=== PATIENT | male | born 1995 | race American Indian/Alaskan Native ===

== ENCOUNTER 2017-07-25 13:37 | Emergency (ER) | payer SELFPAY ==
[2017-07-25 14:03] VITALS: BP 137/76
--- NOTE | 2017-07-25 15:51 | Emergency Department Report ---
Blank Doc - Documentation Documentation: Patient is a 22-year-old male whose presenting with 3 days of diarrhea and now nausea vomiting. Patient states he vomited roughly 6 times this morning. Patient states he has dry mouth. Patient denies any fever. Patient states that some crampy abdominal pain epigastric and left lower quadrant. Patient is not sure of the cause. Patient states he has eaten anything thatmay have caused the symptoms.
[2017-07-25] MEDS ORDERED: TORADOL IV ONE (15:52)
[2017-07-25] MEDS ORDERED: NACL 0.9% 1000 ML 1,000 ML IV ONE (15:52)
[2017-07-25] MEDS ORDERED: BENTYL IM ONE (15:52)
[2017-07-25] MEDS ORDERED: PEPCID IV ONE (15:52)
[2017-07-25 16:23] LABS: Basophils % (Auto) 0.2 % (0.0-1.8); Eosinophils % (Auto) 0.1 % (0.0-4.3); Hemoglobin 16.1 gm/dl (11.8-15.2); Lymphocytes % (Auto) 22.7 % (13.4-35.0); Mean Corpuscular HGB Conc 34 % (32-34); Mean Corpuscular Hemoglobin 32 pg (28-32); Mean Corpuscular Volume 94 fl (84-94); Monocytes # (Auto) 0.4 K/mm3 (0.0-0.8); Monocytes % (Auto) 9.4 % (0.0-7.3); Platelet Count 122 K/mm3 (140-440); Red Blood Count 5.08 M/mm3 (3.65-5.03); Red Cell Distribution Width 13.6 % (13.2-15.2)
[2017-07-25 16:43] LABS: Alanine Aminotransferase 21 units/L (7-56); Albumin 4.2 g/dL (3.9-5); BUN/Creatinine Ratio 10; Blood Urea Nitrogen 9 mg/dL (9-20); Calcium 8.8 mg/dL (8.4-10.2); Hemolysis Index 12; Lipase 24 units/L (13-60)
--- NOTE | 2017-07-25 17:27 | Emergency Department Report ---
Vomiting/Diarrhea - HPI Chief Complaint: Abdominal Pain Stated Complaint: DIARRHEA/VOMITING Time Seen by Provider: 07/25/17 15:47 Duration: 3 Days Severity: mild Nausea/Vomiting Severity: None Diarrhea Severity: None Pain Location: Epigastric Pain Severity: Mild Symptoms: Yes Watery Diarrhea, Yes Able to Tolerate Fluids, Yes Recent Unusual Foods (possibly undercooked fast food as per patient), No Bloody diarrhea, No Fever, No Recent Untreated Water, No Recent use of Antibiotics, No Family w/ Similar Symptoms, No Contacts w/ Similar Symptoms, No Rash, No Hematuria Other History: 22-year-old male with past medical history none presents with complaint of approximately 2 days of intermittent nausea with associated vomiting. Patient states he had a few episodes of slightly watery stools. Patient currently feels significantly better. Denies any associated fever or chills. States that he feels no nausea at this moment and no abdominal pain. Patient denies any dysuria. ED Review of Systems ROS: Stated complaint: DIARRHEA/VOMITING Other details as noted in HPI Constitutional: denies: chills, fever Eyes: denies: eye pain, eye discharge, vision change ENT: denies: ear pain, throat pain Respiratory: denies: cough, shortness of breath, wheezing Cardiovascular: denies: chest pain, palpitations Endocrine: no symptoms reported Gastrointestinal: abdominal pain, nausea, vomiting. denies: diarrhea Genitourinary: denies: urgency, dysuria Musculoskeletal: denies: back pain, joint swelling, arthralgia Skin: denies: rash, lesions Neurological: denies: headache, weakness, paresthesias Psychiatric: denies: anxiety, depression Hematological/Lymphatic: denies: easy bleeding, easy bruising ED Past Medical Hx - Past Medical History Previous Medical History?: Yes Hx HIV: Yes Additional medical history: herpes - Surgical History Past Surgical History?: No - Social History Smoking Status: Current Every Day Smoker Substance Use Type: Alcohol - Medications Home Medications: Home Medications Medication Instructions Recorded Confirmed Last Taken Type Bismuth Subsalicylate 10 ml PO QID PRN #1 udc 07/25/17 Unknown Rx [Pepto-Bismol] Famotidine [Pepcid] 20 mg PO BID PRN #30 tablet 07/25/17 Unknown Rx Ondansetron [Zofran Odt] 4 mg PO Q8H PRN #20 tab.rapdis 07/25/17 Unknown Rx Vomiting Diarrhea Exam - Exam General: Vital signs noted. No distress. Alert and acting appropriately. HEENT: Yes Moist Mucous Membranes, No Pharyngeal Erythema, No Pharyngeal Exudates, No Rhinorrhea, No Conjuctival Injection, No Frontal Tenderness, No Maxillary Tenderness Neck: No Adenopathy, No Rigidity Lungs: Yes Clear Lung Sounds, Yes Good Air Exchange, No Wheezes, No Stridor, No Cough, No Nasal Flaring, No Retractions, No Use of Accessory Muscles Heart exam: Regular: Yes, Murmur: No, Tachycardia: No Abdomen: Tenderness: No (abdomen soft nontender nondistended. Negative Osborne sign.), Peritoneal Signs: No, Distention: No, Hyperactive Bowel sounds: No Skin exam: Rash: No, Edema: No, Normal turgor: Yes Neurologic: Alert and oriented, no deficits. Musculoskeletal: Unremarkable. ED Course Vital Signs 07/25/17 14:00 Temperature 98.4 F Pulse Rate 77 Respiratory 16 Rate Blood Pressure 137/76 O2 Sat by Pulse 97 Oximetry ED Medical Decision Making - Lab Data Result diagrams: 07/25/17 16:00 07/25/17 16:00 - Medical Decision Making A/P: Gastroenteritis 1-patient no longer feels nauseous tolerating by mouth fluid without difficulty 2-labs unremarkable 3-follow-up with PMD 4- Zofran and Pepcid when necessary Critical care attestation.: If time is entered above; I have spent that time in minutes in the direct care of this critically ill patient, excluding procedure time. ED Disposition Clinical Impression: Gastroenteritis Disposition: DC-01 TO HOME OR SELFCARE Is pt being admited?: No Does the pt Need Aspirin: No Condition: Stable Instructions: Gastroenteritis (ED) Prescriptions: Bismuth Subsalicylate [Pepto-Bismol] 10 ml PO QID PRN #1 udc PRN Reason: Indigestion Famotidine [Pepcid] 20 mg PO BID PRN #30 tablet PRN Reason: Indigestion Ondansetron [Zofran Odt] 4 mg PO Q8H PRN #20 tab.rapdis PRN Reason: Nausea Referrals: PRIMARY CARE,MD [Primary Care Provider] - 3-5 Days [facility] [place] [Outside] - 3-5 Days [facility] [Outside] - 3-5 Days Forms: Work/School Release Form(ED) Time of Disposition: 17:25
== END 2017-07-25 17:32 | disposition home or self-care (01) ==
LOC: ED 13:37
DX: K52.9 Noninfective gastroenteritis and colitis, unspecified (principal); F17.200 Nicotine dependence, unspecified, uncomplicated
CPT/HCPCS: 36415; 80053; 83690; 85025; 96361; 96372; 96374; 96375; 99283; J0500; J1885; J7030

== ENCOUNTER 2019-05-28 14:21 | Emergency (ER) | payer SELFPAY ==
[2019-05-28 15:23] VITALS: BP 109/64
--- NOTE | 2019-05-28 15:33 | Event Note ---
ED Screening Note Date of service: 05/28/19 Time: 15:29 ED Screening Note: This is a 24 y.o. M. with abdominal pain and constipation for 2 weeks. Reports diarrhea stool yesterday w/o relief. Denies recent travel or unusual foods. This initial assessment/diagnostic orders/clinical plan/treatment(s) is/are subject to change based on patients health status, clinical progression and re- assessment by fellow clinical providers in the ED. Further treatment and workup at subsequent clinical providers discretion. Patient/guardian urged not to elope from the ED as their condition may be serious if not clinically assessed and managed. Initial orders include: Labs XR of abdomen
--- NOTE | 2019-05-28 16:19 | XRay Report ---
ABDOMEN 2 VIEW(S) INDICATION / CLINICAL INFORMATION: MAIN: diffuse abdominal pain; Pt. c/o no normal BM x 2 weeks and abdominal pain. Pt. been experienci ng watery diarrhea since last night. Pt. has hx of HIV and Herpes.. COMPARISON: None available. FINDINGS: TUBES / LINES: None. BOWEL GAS PATTERN: Nonobstructive bowel gas pattern with nonspecific air-fluid levels in the small an d large bowel seen on the upright radiograph. FREE AIR / EXTRALUMINAL GAS: None seen. ADDITIONAL FINDINGS: No significant additional findings. IMPRESSION: 1. Nonobstructive bowel gas pattern with air-fluid levels seen in the small and large bowel, can be s een in the setting of enteritis or diarrheal illness. Signer Name: Bre Cordova MD Signed: 05/28/2019 4:14 PM Workstation Name: [id number]
[2019-05-28 16:32] LABS: Basophils % (Auto) 0.2 % (0.0-1.8); Eosinophils % (Auto) 0.1 % (0.0-4.3); Hematocrit 44.4 % (35.5-45.6); Hemoglobin 14.5 gm/dl (11.8-15.2); Lymphocytes # (Auto) 1.7 K/mm3 (1.2-5.4); Lymphocytes % (Auto) 14.9 % (13.4-35.0); Mean Corpuscular HGB Conc 33 % (32-34); Mean Corpuscular Volume 93 fl (84-94); Monocytes % (Auto) 8.5 % (0.0-7.3); Platelet Count 285 K/mm3 (140-440); Red Cell Distribution Width 13.1 % (13.2-15.2)
[2019-05-28 16:41] LABS: Alanine Aminotransferase 9 units/L (7-56); BUN/Creatinine Ratio 10; Blood Urea Nitrogen 10 mg/dL (9-20); Calcium 9.3 mg/dL (8.4-10.2); Hemolysis Index 11
[2019-05-28] MEDS ORDERED: FAMOTIDINE 20 MG/2 ML INJ IV ONE (17:11)
[2019-05-28] MEDS ORDERED: SODIUM CHLORIDE 0.9% 1000 ML 1,000 ML IV ONE (17:11)
[2019-05-28] MEDS ORDERED: KETOROLAC 30 MG/1 ML INJ IV ONE (17:11)
[2019-05-28] MEDS ORDERED: ONDANSETRON 4 MG/2 ML INJ IV ONE (17:13)
--- NOTE | 2019-05-28 17:17 | Emergency Department Report ---
ED N/V/D HPI - General Chief complaint: Abdominal Pain Stated complaint: NOT GOING Time Seen by Provider: 05/28/19 15:28 Source: patient Mode of arrival: Ambulatory Limitations: No Limitations - History of Present Illness Initial comments: This is a 24-year-old male who presents the ED complaining of loose watery diarrhea that began last night. Patient states for the past 2 weeks he has had constipation and inability to have a bowel movement. Patient states that he has had no unusual travel or unusual food recently. Patient states the last meal he had was chicken noodle soup which was last night. Patient admits mild abdominal cramping but otherwise no other symptoms. Patient denies fevers/chills/chest pain/shortness of breath. MD complaint: diarrhea - Related Data Previous Rx's Medication Instructions Recorded Last Taken Type Famotidine [Pepcid] 20 mg PO BID PRN #30 tablet 07/25/17 Unknown Rx Ondansetron [Zofran Odt] 4 mg PO Q8H PRN #20 tab.rapdis 07/25/17 Unknown Rx Bismuth Subsalicylate [Pepto 10 ml PO QID PRN #1 udc 05/28/19 Unknown Rx Bismol] Ciprofloxacin HCl [Ciprofloxacin 500 mg PO Q12HR #14 tab 05/28/19 Unknown Rx TAB] Dicyclomine [Bentyl] 20 mg PO TID #20 tablet 05/28/19 Unknown Rx metroNIDAZOLE [Flagyl TAB] 500 mg PO Q12HR #14 tab 05/28/19 Unknown Rx Allergies Allergy/AdvReac Type Severity Reaction Status Date / Time No Known Allergies Allergy Verified 07/25/17 14:00 ED Review of Systems ROS: Stated complaint: NOT GOING Other details as noted in HPI Comment: All other systems reviewed and negative ED Past Medical Hx - Past Medical History Previous Medical History?: Yes Hx HIV: Yes Additional medical history: herpes - Surgical History Past Surgical History?: No - Social History Smoking Status: Current Every Day Smoker Substance Use Type: Alcohol, Marijuana - Medications Home Medications: Home Medications Medication Instructions Recorded Confirmed Last Taken Type Famotidine [Pepcid] 20 mg PO BID PRN #30 tablet 07/25/17 Unknown Rx Ondansetron [Zofran Odt] 4 mg PO Q8H PRN #20 tab.rapdis 07/25/17 Unknown Rx Bismuth Subsalicylate [Pepto 10 ml PO QID PRN #1 udc 05/28/19 Unknown Rx Bismol] Ciprofloxacin HCl [Ciprofloxacin 500 mg PO Q12HR #14 tab 05/28/19 Unknown Rx TAB] Dicyclomine [Bentyl] 20 mg PO TID #20 tablet 05/28/19 Unknown Rx metroNIDAZOLE [Flagyl TAB] 500 mg PO Q12HR #14 tab 05/28/19 Unknown Rx ED Physical Exam - General Limitations: No Limitations General appearance: alert, in no apparent distress - Head Head exam: Present: atraumatic, normocephalic - Eye Eye exam: Present: normal appearance - ENT ENT exam: Present: mucous membranes moist - Neck Neck exam: Present: normal inspection - Respiratory Respiratory exam: Present: normal lung sounds bilaterally. Absent: respiratory distress - Cardiovascular Cardiovascular Exam: Present: regular rate, normal rhythm. Absent: systolic murmur, diastolic murmur, rubs, gallop - GI/Abdominal GI/Abdominal exam: Present: soft, normal bowel sounds - Rectal Rectal exam: Present: deferred - Extremities Exam Extremities exam: Present: normal inspection - Back Exam Back exam: Present: normal inspection - Neurological Exam Neurological exam: Present: alert, oriented X3 - Psychiatric Psychiatric exam: Present: normal affect, normal mood - Skin Skin exam: Present: warm, dry, intact, normal color. Absent: rash ED Course Vital Signs 05/28/19 05/28/19 05/28/19 14:50 15:26 18:04 Temperature 98.7 F 98.4 F Pulse Rate 105 H 98 H Respiratory 16 18 Rate Blood Pressure 109/64 109/64 O2 Sat by Pulse 100 99 Oximetry ED Medical Decision Making - Lab Data Result diagrams: 05/28/19 16:08 05/28/19 16:08 Laboratory Last Values WBC 11.3 K/mm3 (4.5-11.0) H 05/28/19 16:08 RBC 4.80 M/mm3 (3.65-5.03) 05/28/19 16:08 Hgb 14.5 gm/dl (11.8-15.2) 05/28/19 16:08 Hct 44.4 % (35.5-45.6) 05/28/19 16:08 MCV 93 fl (84-94) 05/28/19 16:08 MCH 30 pg (28-32) 05/28/19 16:08 MCHC 33 % (32-34) 05/28/19 16:08 RDW 13.1 % (13.2-15.2) L 05/28/19 16:08 Plt Count 285 K/mm3 (140-440) 05/28/19 16:08 Lymph % (Auto) 14.9 % (13.4-35.0) 05/28/19 16:08 [place] % (Auto) 8.5 % (0.0-7.3) H 05/28/19 16:08 Eos % (Auto) 0.1 % (0.0-4.3) 05/28/19 16:08 Baso % (Auto) 0.2 % (0.0-1.8) 05/28/19 16:08 Lymph # 1.7 K/mm3 (1.2-5.4) 05/28/19 16:08 [place] # 1.0 K/mm3 (0.0-0.8) H 05/28/19 16:08 Eos # 0.0 K/mm3 (0.0-0.4) 05/28/19 16:08 Baso # 0.0 K/mm3 (0.0-0.1) 05/28/19 16:08 Seg Neutrophils % 76.3 % (40.0-70.0) H 05/28/19 16:08 Seg Neutrophils # 8.6 K/mm3 (1.8-7.7) H 05/28/19 16:08 Sodium 133 mmol/L (137-145) L 05/28/19 16:08 Potassium 3.8 mmol/L (3.6-5.0) 05/28/19 16:08 Chloride 92.5 mmol/L (98-107) L 05/28/19 16:08 Carbon Dioxide 21 mmol/L (22-30) L 05/28/19 16:08 Anion Gap 23 mmol/L 05/28/19 16:08 BUN 10 mg/dL (9-20) 05/28/19 16:08 Creatinine 1.0 mg/dL (0.8-1.5) 05/28/19 16:08 Estimated GFR > 60 ml/min 05/28/19 16:08 BUN/Creatinine Ratio 10 % 05/28/19 16:08 Glucose 112 mg/dL (75-100) H 05/28/19 16:08 Calcium 9.3 mg/dL (8.4-10.2) 05/28/19 16:08 Total Bilirubin 0.50 mg/dL (0.1-1.2) 05/28/19 16:08 AST 12 units/L (5-40) 05/28/19 16:08 ALT 9 units/L (7-56) 05/28/19 16:08 Alkaline Phosphatase 67 units/L (35-129) 05/28/19 16:08 Total Protein 8.2 g/dL (6.3-8.2) 05/28/19 16:08 Albumin 4.0 g/dL (3.9-5) 05/28/19 16:08 Albumin/Globulin Ratio 1.0 % 05/28/19 16:08 Urine Color Alissa (Yellow) 05/28/19 Unknown Urine Turbidity Clear (Clear) 05/28/19 Unknown Urine pH 5.0 (5.0-7.0) 05/28/19 Unknown Ur Specific [place] 1.025 (1.003-1.030) 05/28/19 Unknown Urine Protein 30 mg/dl mg/dL (Negative) 05/28/19 Unknown Urine Glucose (UA) Neg mg/dL (Negative) 05/28/19 Unknown Urine Ketones Tr mg/dL (Negative) 05/28/19 Unknown Urine Blood Sm (Negative) 05/28/19 Unknown Urine Nitrite Neg (Negative) 05/28/19 Unknown Urine Bilirubin Neg (Negative) 05/28/19 Unknown Urine Urobilinogen < 2.0 mg/dL (<2.0) 05/28/19 Unknown Ur Leukocyte Esterase Neg (Negative) 05/28/19 Unknown Urine WBC (Auto) 4.0 /HPF (0.0-6.0) 05/28/19 Unknown Urine RBC (Auto) 10.0 /HPF (0.0-6.0) 05/28/19 Unknown Urine Bacteria (Auto) 1+ /HPF (Negative) 05/28/19 Unknown Urine Mucus 2+ /HPF 05/28/19 Unknown Urine Sperm Few /HPF (WELDING [employer]INEER) 05/28/19 Unknown - Radiology Data Radiology results: report reviewed, image reviewed ABDOMEN 2 VIEW(S) INDICATION / CLINICAL INFORMATION: MAIN: diffuse abdominal pain; Pt. c/o no normal BM x 2 weeks and abdominal pain. Pt. been experiencing watery diarrhea since last night. Pt. has hx of HIV and Herpes.. COMPARISON: None available. FINDINGS: TUBES / LINES: None. BOWEL GAS PATTERN: Nonobstructive bowel gas pattern with nonspecific air-fluid levels in the small and large bowel seen on the upright radiograph. FREE AIR / EXTRALUMINAL GAS: None seen. ADDITIONAL FINDINGS: No significant additional findings. IMPRESSION: 1. Nonobstructive bowel gas pattern with air-fluid levels seen in the small and large bowel, can be seen in the setting of enteritis or diarrheal illness. Signer Name: Bre Cordova MD Signed: 05/28/2019 4:14 PM Workstation Name: [id number] Transcribed By: [facility] Dictated By: Bre Cordova MD Electronically Authenticated By: Bre Cordova MD Signed Date/Time: 05/28/19 1614 - Medical Decision Making This 24-year-old male presents with acute gastroenteritis most likely secondary to IBS or food poisoning. All labs are within normal limits in the ED. Mild leukocytosis, mild hyponatremia most likely secondary to dehydration. Patient received IV fluids in the ED, pain medication Discussed all lab results with patient. Abdominal x-ray shows no acute findings other than see report above Patient was feeling better prior to discharge. No active vomiting in the ED Discussed with patient follow-up with primary care physician. Discussed with patient also follow-up with biometrician. Critical care attestation.: If time is entered above; I have spent that time in minutes in the direct care of this critically ill patient, excluding procedure time. ED Disposition Clinical Impression: Gastroenteritis, Acute diarrhea Disposition: DC-01 TO HOME OR SELFCARE Is pt being admited?: No Does the pt Need Aspirin: No Condition: Stable Instructions: Gastroenteritis (ED), Acute Nausea and Vomiting (ED), Food Poisoning (ED) Additional Instructions: Make sure to follow up with the primary care physician as discussed. Take all your medications as you've been prescribed. Please follow-up with your biometrician If you have any worsening symptoms or develop new symptoms please return to ED immediately. Prescriptions: Dicyclomine [Bentyl] 20 mg PO TID #20 tablet Ciprofloxacin HCl [Ciprofloxacin TAB] 500 mg PO Q12HR #14 tab metroNIDAZOLE [Flagyl TAB] 500 mg PO Q12HR #14 tab Bismuth Subsalicylate [Pepto Bismol] 10 ml PO QID PRN #1 udc PRN Reason: Indigestion Referrals: PRIMARY CARE, [Primary Care Provider] - 3-5 Days [facility] [Provider Group] - 3-5 Days [facility] [Provider Group] - 3-5 Days Forms: Accompanied Note, Work/School Release Form(ED) Time of Disposition: 18:29
[2019-05-28 17:30] LABS: Bacteria,Urine 1+ /HPF (Negative); Bilirubin,Urine NEG (Negative); Blood,Urine SM (Negative); Color,Urine Amber (Yellow); Mucus,Urine 2+ /HPF; Sperm,Urine FEW /HPF (NP); Urobilinogen,Urine < 2.0 mg/dL (<2.0)
== END 2019-05-28 18:50 | disposition home or self-care (01) ==
LOC: ED 14:21
DX: K52.9 Noninfective gastroenteritis and colitis, unspecified (principal); F17.200 Nicotine dependence, unspecified, uncomplicated; F12.90 Cannabis use, unspecified, uncomplicated; Z79.899 Other long term (current) drug therapy; Z21 Asymptomatic human immunodeficiency virus [HIV] infection status
CPT/HCPCS: 36415; 74019; 80053; 81001; 85025; 96374; 96375; 99284; J1885; J2405; J7030